=== PATIENT | male | born 1930 | race Caucasian/White ===

== ENCOUNTER 2017-06-18 09:51 | Inpatient (IN) | payer OTHER ==
[~2017-06-18] VITALS: Ht 180.3 cm; Wt 70.8 kg
[~2017-06-18 09:51] MED LIST: LANS30CA10 PO
[2017-06-18 09:52] VITALS: BP_SYST 165
[2017-06-18 10:28] LABS: BASOPHILS % (AUTO) 0.6 % (0.0-2.0); EOSINOPHILS # (AUTO) 0.1 K/uL (0.0-0.4); EOSINOPHILS % (AUTO) 2.2 % (0.0-4.0); HEMATOCRIT 36.2 % (36-54); HEMOGLOBIN 11.8 g/dL (14.0-18.0); LYMPHOCYTES # (AUTO) 1.4 K/uL (1.0-5.5); LYMPHOCYTES % (AUTO) 21.3 % (20.5-51.5); MEAN CORPUSCULAR HEMOGLOBIN 30 pg (27-31); MEAN CORPUSCULAR HGB CONC 33 % (32-36); MEAN CORPUSCULAR VOLUME 90 fL (79.0-98.0); MONOCYTES # (AUTO) 0.6 K/uL (0.0-1.0); MONOCYTES % (AUTO) 9.1 % (1.7-9.3); NEUTROPHILS # (AUTO) 4.3 K/uL (1.8-7.7); NEUTROPHILS % (AUTO) 66.8 % (40.0-70.0); PLATELET COUNT (AUTO) 273 K/uL (130-430); RED BLOOD CELL COUNT(AUTO) 4.01 MIL/uL (4.2-6.2); RED CELL DISTRIBUTION WIDTH 12.3 % (9.0-15.0); WHITE BLOOD COUNT (AUTO) 6.4 K/uL (4.8-10.8)
[2017-06-18 10:43] LABS: ANION GAP 10 (5-15); CALCIUM 8.7 mg/dL (8.4-11.0); CHLORIDE 110 mmol/L (98-107); CREATININE 1.48 mg/dL (0.55-1.30); GLUCOSE 93 mg/dL (70-99); POTASSIUM 3.8 mmol/L (3.5-5.1); SODIUM SERUM 148 mmol/L (136-145); UREA NITROGEN, BLOOD 41 mg/dL (8-21)
[2017-06-18 10:52] LABS: ALANINE AMINOTRANSFERASE 26 U/L (12-78); ALBUMIN 3.6 g/dL (3.4-4.8); ASPARTATE AMINOTRANSFERASE 25 U/L (10-37); TOTAL BILIRUBIN 0.8 mg/dL (0.0-1.0)
[2017-06-18] MEDS ORDERED: POLYETHYLENE GLYCOL 3350, 17 GM/ POWD.PACK PO ONE (11:15)
[2017-06-18] MEDS ORDERED: NACL 0.9% 1,000 ML IV ONE (11:15)
[2017-06-18 11:20] LABS: PROTHROMBIN TIME 10.7 SECS (9.5-12.5)
[2017-06-18 13:36] LABS: BILIRUBIN,URINE NEGATIVE (NEGATIVE); CLARITY/URINE CLEAR (CLEAR); COLOR,URINE YELLOW (YELLOW); GLUCOSE,URINE NEGATIVE (NEGATIVE); KETONES,URINE NEGATIVE (NEGATIVE); LEUKOCYTE ESTERASE ,URINE NEGATIVE (NEGATIVE); NITRITE, URINE NEGATIVE (NEGATIVE); PROTEIN URINE NEGATIVE (NEGATIVE); UROBILINOGEN,URINE 0.2 (0.2-1.0)
[2017-06-18 13:38] LABS: BLOOD, URINE TRACE (NEGATIVE)
[2017-06-18 13:51] VITALS: BP_SYST 160
[2017-06-18 14:04] LABS: RBC,URINE 0-3 /HPF (0-3); WBC,URINE 0-3 /HPF (0-3)
[2017-06-18 14:05] LABS: BACTERIA,URINE RARE /HPF (None Seen); MUCUS,URINE 1+ /LPF (None Seen)
[2017-06-18] MEDS ORDERED: DONE10TA44 PO (14:17)
[2017-06-18] MEDS ORDERED: ACETAMINOPHEN 325 MG TABLET PO PRN (14:45)
[2017-06-18] MEDS ORDERED: ALPRAZolam 0.25 MG TABLET PO PRN (14:45)
[2017-06-18] MEDS ORDERED: FLU VACC QS 2017-18(36MOS+)/PF 0.5 ML/SYR SYRINGE I.M. PRN (16:15)
[2017-06-18] MEDS: D5NS 1,000 ML IV SCH (17:04)
[2017-06-18 17:07] VITALS: BP_SYST 137
[2017-06-18] MEDS: DOCUSATE SODIUM 250 MG CAPSULE PO SCH (20:25)
[2017-06-19 00:36] VITALS: BP_SYST 149
[2017-06-19 04:07] VITALS: BP_SYST 139
[2017-06-19] MEDS: D5NS 1,000 ML IV SCH (06:11)
[2017-06-19 07:12] LABS: ANION GAP 9 (5-15); CALCIUM 8.9 mg/dL (8.4-11.0); CHLORIDE 106 mmol/L (98-107); CREATININE 1.13 mg/dL (0.55-1.30); GLUCOSE 106 mg/dL (70-99); POTASSIUM 3.7 mmol/L (3.5-5.1); SODIUM SERUM 142 mmol/L (136-145); UREA NITROGEN, BLOOD 27 mg/dL (8-21)
[2017-06-19 08:23] VITALS: BP_SYST 131
[2017-06-19] MEDS: DOCUSATE SODIUM 250 MG CAPSULE PO SCH (08:27)
[2017-06-19] MEDS ORDERED: PANTOPRAZOLE SODIUM 40 MG TAB PO SCH (09:00)
[2017-06-19] MEDS ORDERED: DONEPEZIL HCL 5 MG TABLET (ARICEPT) PO SCH (09:00)
[2017-06-19] MEDS ORDERED: ASPIRIN 81 MG TABLET(ECOTRIN) PO SCH (09:00)
[2017-06-19 12:35] VITALS: BP_SYST 129
[2017-06-19 12:36] VITALS: BP_SYST 142
== END 2017-06-19 13:50 | disposition home or self-care (01) | DRG 391 ==
LOC: SED 09:51 → STU 12:57 → SMU 06-19 08:30
PROVIDERS: ADMIT Internal Medicine Hospice and Palliative Medicine; ATTEND Internal Medicine Hospice and Palliative Medicine
DX: K21.9 Gastro-esophageal reflux disease without esophagitis (principal); N17.0 Acute kidney failure with tubular necrosis; R07.89 Other chest pain; F03.90 Unspecified dementia, unspecified severity, without behavioral disturbance, psychotic disturbance, mood disturbance, and anxiety; D64.9 Anemia, unspecified; K59.00 Constipation, unspecified
CPT/HCPCS: 36415; 71010; 74000-TC; 76770; 80048; 80053; 81000-TC; 82550-TC; 83880; 84484; 85025; 85610-TC; 85730-TC; 93005; 93306; 96360; 99285; J7030; Q2037